=== PATIENT | female | born 1990 | race Caucasian/White ===

== ENCOUNTER 2018-09-25 18:12 | Emergency (ER) | payer OTHER, SELFPAY ==
[2018-09-25 18:15] VITALS: BP 116/79; PULSE 67; RESP 18; TEMP 36.7; O2SAT 100; BMI 24.5
--- NOTE | 2018-09-25 19:04 | DI.RAD.S_ITS ---
PROCEDURE: XR KNEE LT 3V INDICATIONS: L knee pain top of patella, hit on sharp corner TECHNIQUE: 3 views of the knee were acquired. COMPARISON: None. FINDINGS: Bones: No fractures or dislocations. No suspicious bony lesions. Soft tissues: No substantial joint effusion. No suspicious soft tissue calcifications. IMPRESSION: Left knee without acute radiographic abnormalities. If there are persistent symptoms or clinical suspicion for pathology, then repeat radiographs or advanced imaging (CT, MRI or bone scan) should be considered for further evaluation. Dictated by: Jaylon Ruffin M.D. on 09/25/2018 at 19:39 Approved by: Jaylon Ruffin M.D. on 09/25/2018 at 19:40
[2018-09-25] MEDS: ONDANSETRON 4 MG ODT SL (19:18)
[2018-09-25] MEDS: ACETAMINOPHEN 325 MG TABLET 975 MG PO (19:19)
--- NOTE | 2018-09-25 19:35 | PC.NURSE ---
Pt struck her head and knee on car door while cleaning car. Pt has small lac to forehead, bleeding controlled. Pt c/o headache, knee pain, dizziness, and nausea. Denies LOC or taking blood thinners.
--- NOTE | 2018-09-25 19:45 | ED.WOUNDLAC ---
HPI - Wound/Laceration <PRITESH Quiñonez - Last Filed: 09/25/18 23:22> General Chief Complaint: Wound/Laceration Stated Complaint: Hit head and knee on car door, thinks concussion Time Seen by Provider: 09/25/18 18:48 Source: patient and family Mode of arrival: ambulatory Limitations: no limitations History of Present Illness HPI narrative: This is a 27 year ordered female, nonsmoker, presents with her significant other with 1 cm laceration on her forehead and left knee pain. She had hit her head and left knee on sharp points of the car door this afternoon at 5:20 p.m. when she lifted her head up from vacuuming her car when her children trying to get her attention. She denies loss of consciousness although she felt a little woozy and felt like passing out at that time but now this has improved. She reports tenderness to her face, headache in frontal and temporal area and rated as 8/10, mild blurred vision however reports she is able to see. She denies neck tenderness, tingling numbness to upper extremities, history of head injury, on anticoagulants. She was ambulatory into the ED in stable gait, she reports had injured her same left knee about an year ago when her knee was hit by a baseball. She reports her pain is superior region of left patella. Related Data Home Medications Medication Instructions Recorded Confirmed No Known Home Medications 09/25/18 09/25/18 Allergies Allergy/AdvReac Type Severity Reaction Status Date / Time No Known Drug Allergies Allergy Verified 09/25/18 19:04 Review of Systems <PRITESH Quiñonez - Last Filed: 09/25/18 23:22> Review of Systems General: Denies fever, chills, fatigue, malaise, sweats. HEENT: See HPI. Denies sinus pain, ear pain, sore throat, difficulty swallowing, dizziness. Respiratory: Denies dyspnea, cough, wheezing, hemoptysis, sputum. Cardiovascular: Denies chest pain, palpitations, orthopnea, edema. Gastrointestinal: Reports nausea. Denies vomiting, abdominal pain, diarrhea, constipation, melena. : Denies dysuria, frequency, incontinence, hematuria, urinary retention. Musculoskeletal: Denies weakness, joint pain or bony pain. Skin: See HPI. Denies rash, skin lesions, or other. Neurologic: Reports headache and facial pain. Denies weakness, numbness, change in speech, confusion, seizures, incoordination. Psychiatric: No concerning psychosocial issues. 12-point review of systems is negative except for those stated above. PFSH <PRITESH Quiñonez - Last Filed: 09/25/18 23:22> Medical History (Updated 09/25/18 @ 23:01 by PRITESH Quiñonez) Delivery with history of (Chronic) Surgical History (Updated 09/25/18 @ 23:01 by PRITESH Quiñonez) H/O bilateral salpingectomy (Chronic) Social History (Updated 09/25/18 @ 23:01 by PRITESH Quiñonez) Smoking Status: Never smoker alcohol intake: current substance use type: marijuana Social History (Updated 09/25/18 @ 23:01 by PRITESH Quiñonez) Smoking Status: Never smoker alcohol intake: current substance use type: marijuana Exam <PRITESH Quiñonez - Last Filed: 09/25/18 23:22> Narrative Exam Narrative: GEN: Alert, oriented x 3, well nourished, and appears to be in discomfort. Head: Normal cephalic, atraumatic. No scalp or temporal tenderness, palpable mass or rash. EYES: Pupils are equal, round, and reactive to light and accommodation. Extraocular muscles are intact bilaterally. There is no subconjunctival hemorrhage, exudate and sclera non-icteric. ENT: Bilateral auditory canals and tympanic membranes. Hearing grossly intact. Nose without bleeding, purulent discharge. Mucous membrane moist, no mucosal lesion. Throat without erythema, tonsillar hypertrophy or exudate. Uvula in midline, airway patent. Neck: Trachea in midline. No JVD, non-tender without lymphadenopathy. No masses or thyroid megaly. Supple, non-tender and meningeal signs. CARDIAC: Normal regular rate and rhythm without murmurs, gallops, or rubs. No chest wall tenderness. No peripheral edema, cyanosis or pallor. Capillary refill is less than 2 seconds. RESPIRATORY: Lungs are cleat to auscultate bilaterally. No cough, wheezes, rales, or rhonchi. No stridor, respiratory distress, increase work of breathing, or accessary muscle used. ABD: Abdomen soft, nontender and non-distended. No guarding or rebound tenderness to palpate. Bowel sounds are normal in all 4 quadrants. There is no palpable masses or organomegaly. EXT: L superior patella tender to palpate. Full ROM of all extremities with no loss of sensation, strength, effusion or edema. SKIN: 1 cm superficial laceration to L side forehead. Warm, dry, normal color for patient. No erythema, lesions or rash. BACK: Nontender without deformity or crepitance. No flank tenderness. NEUROLOGICAL: Alert and oriented to place, time and person. Sensation and motor function intact bilaterally. No facial droops, dysphasia. PSYCHIATRIC: Good judgement and reason, without hallucinations, abnormal affect or abnormal behaviors during the examination. Initial Vital Signs Initial Vital Signs: Vital Signs Temperature 98.0 F 09/25/18 18:15 Pulse Rate 67 09/25/18 18:15 Respiratory Rate 18 09/25/18 18:15 Blood Pressure 116/79 09/25/18 18:15 Pulse Oximetry 100 09/25/18 18:15 <Ervin [address] DO - Last Filed: 09/26/18 03:43> Initial Vital Signs Initial Vital Signs: Vital Signs Temperature 98.0 F 09/25/18 18:15 Pulse Rate 67 09/25/18 18:15 Respiratory Rate 18 09/25/18 18:15 Blood Pressure 116/79 09/25/18 18:15 Pulse Oximetry 100 09/25/18 18:15 Procedures <ЮЛИЯ QuiñonezP - Last Filed: 09/25/18 23:22> Laceration Repair Laceration 1: Site: face (forehead) Side (If applicable): left Size (cm): 1 Description: clean Pre-repair: wound explored and irrigated extensively (cleaned with hibiclens and water) Skin layer closed with: dermabond Scores <PRITESH Quiñonez - Last Filed: 09/25/18 23:22> Nexus Score for C-Spine Focal Neurologic deficit present: No Midline spinal tenderness present: No Altered level of conciousness present: No Intoxication present: No Distracting Injury Present: No Nexus Criteria for C-spine: 0 Course <PRITESH Quiñonez - Last Filed: 09/25/18 23:22> Orders Ordered: ED Orders 09/25/18 19:04 XR knee LT 3V Stat Discontinued Medications Acetaminophen (Tylenol) 975 mg PO NOW ONE Stop: 09/25/18 19:05 Last Admin: 09/25/18 19:19 Dose: 975 mg Ondansetron HCl (Zofran Odt) 4 mg SL NOW ONE Stop: 09/25/18 19:05 Last Admin: 09/25/18 19:18 Dose: 4 mg Vital Signs - 8 hr 09/25/18 20:00 Pulse Rate 65 Respiratory Rate 15 Blood Pressure [Right Arm] 112/78 Pulse Oximetry 100 <Ervin Lane DO - Last Filed: 09/26/18 03:43> Orders Ordered: ED Orders 09/25/18 19:04 XR knee LT 3V Stat Discontinued Medications Acetaminophen (Tylenol) 975 mg PO NOW ONE Stop: 09/25/18 19:05 Last Admin: 09/25/18 19:19 Dose: 975 mg Ondansetron HCl (Zofran Odt) 4 mg SL NOW ONE Stop: 09/25/18 19:05 Last Admin: 09/25/18 19:18 Dose: 4 mg Vital Signs - 8 hr 09/25/18 20:00 Pulse Rate 65 Respiratory Rate 15 Blood Pressure [Right Arm] 112/78 Pulse Oximetry 100 MDM - Wound/Laceration <PRITESH Quiñonez - Last Filed: 09/25/18 23:22> Differential Diagnosis Differential diagnosis: Likely laceration and other (Closed head injury, Knee sprain, Patella fracture) Medical Records Attestation: I reviewed the patient's medical records. Imaging Data XR-L knee: Radiologist's impression: Sujey Harvey 27 F [address] [address] XRay Report Signed Patient: Sujey Harvey [facility]#: [id number] : 1990Acct:[id number] Age/Sex: 27 / FDate of Service: 09/25/18 Loc: ED Accession Number: [id number] Procedure: XR knee LT 3V Ordering Provider: Dominic Brown PROCEDURE: XR KNEE LT 3V INDICATIONS: L knee pain top of patella, hit on sharp corner TECHNIQUE: 3 views of the knee were acquired. COMPARISON: None. FINDINGS: Bones: No fractures or dislocations. No suspicious bony lesions. Soft tissues: No substantial joint effusion. No suspicious soft tissue calcifications. IMPRESSION: Left knee without acute radiographic abnormalities. If there are persistent symptoms or clinical suspicion for pathology, then repeat radiographs or advanced imaging (CT, MRI or bone scan) should be considered for further evaluation. Dictated by: Jaylon Ruffin M.D. on 09/25/2018 at 19:39 Approved by: Jaylon Ruffin M.D. on 09/25/2018 at 19:40 [facility] Narrative Medical decision making narrative: This is a 27-year-old female presents with her spouse to ED in chief complain of headache, laceration on forehead, left knee pain after she sustained injury by hitting her forehead and left knee on sharp corners of car door when she straightened her body quickly from vacuuming her car when her child needed her attention. Patient complaining of frontal and lateral head and facial pain. Per [place] CT head/Trauma rule score is 0 along Nexus score for C spine and this was shared with the patient and her spouse which they both agree with deferring the CT tests. The superficial laceration on her for had was repaired by a Dermabond after wound has been cleaned with Hibiclens and water. She was treated with ODT Zofran and Tylenol 975 mg p.o. for nausea and pain and ice packs were applied on her head and knee. she reports her pain had decreased to 6/10 before leaving the ER. we discussed in length in regards to red flag symptoms for close head injury and to monitor for increasing headache, vision change, repeated vomiting, weakness/ tingling to an extremity and seizure. I emphasized with the patient and spouseto avoid another head injury the near future and to rest her brain and limiting monitor time to recover from head injury. The wound care after the Dermabond suture repair has discussed with the patient. The patient is being discharged with her spouse and she will be monitored by her spouse next 24 hours. She is to follow up with primary care physician next 2-3 days for re-evaluation on her closed head injury, wound recheck. patient was advised to continue to take [id number] medication Tylenol and/or Motrin for pain. The patient and spouse both expressed understanding on treatment plan and no further questions expressed at this time. Discharge Plan Departure Patient Disposition: Home Clinical Impression: CHI (closed head injury) Qualifiers: Encounter type: initial encounter Qualified Code(s): S09.90XA - Unspecified injury of head, initial encounter Forehead laceration Qualifiers: Encounter type: initial encounter Qualified Code(s): S01.81XA - Laceration without foreign body of other part of head, initial encounter Contusion of knee Qualifiers: Encounter type: initial encounter Laterality: left Qualified Code(s): S80.02XA - Contusion of left knee, initial encounter Discharge Date/Time: 09/25/18 20:42 Interventions: ED Discharge Assessment Last Done: 09/25/18 20:46 Instructions: DI for Laceration Repair With Dermabond, DI for Contusion, DI for Closed Head Injury Activity Restrictions/Additional Instructions: You have been diagnosed with [closed head injury from hitting your head on sharp corner of the car door and sustained laceration on forehead and knee contusion. Your xray test does not show any acute findings such as fracture or effusion under left knee. Your laceration on forehead has been repaired with Dermabond. Please do not apply ointment/cream/lotion with oil based until the Dermabond comes off next 7-10 days. Please read head injury instructions. Please useRICE therapy such as rest, ice for 48 to 72 hours, compression as needed, elevation of the left knee for pain for next couple of days]. What to do: *Take your medications as directed. Please use [id number] Tylenol and or ibuprofen as needed for pain and inflammation and follow the instructions on the pill bottles. *Follow up with your primary care provider in 2-3 days, call for an appointment. Let them know you were seen in the ED and that we asked you to be seen in follow up. *Return to ED if you have any new, worsening, or concerning symptoms, such as [signs and symptoms for infection such as increasing redness/pain/swelling/prolonged discharge/fever or warmth. Please return to ER if you have repeated nausea vomiting, vision change, severe headache, unusual behavior, seizure, chest pain, difficulty breathing, any acute concerns]. Prescriptions: No Action No Known Home Medications RF: 0 Referrals: [facility] [Outside] <Ervin Lane DO - Last Filed: 09/26/18 03:43> Cosign ED Attending Cosignature Attestation: I was immediately available in the department for consultation. Documentation has been reviewed. I agree with assessment and plan.
[2018-09-25 20:00] VITALS: BP 112/78; PULSE 65; RESP 15; O2SAT 100
== END 2018-09-25 20:42 | disposition home or self-care (01) ==
PROVIDERS: Emergency Provider Nurse Practitioner Family
DX: S01.81XA Laceration without foreign body of other part of head, initial encounter (principal); S80.02XA Contusion of left knee, initial encounter; W22.8XXA Striking against or struck by other objects, initial encounter
CPT/HCPCS: 73562; 99283

== ENCOUNTER 2019-01-30 19:25 | Emergency (ER) | payer OTHER, SELFPAY ==
[2019-01-30 19:45] VITALS: BP 135/86; PULSE 70; RESP 18; TEMP 37.1; O2SAT 100
[2019-01-30] MEDS: ONDANSETRON 4 MG ODT PO (19:52)
--- NOTE | 2019-01-30 21:04 | ED.URI ---
HPI - URI/Sore Throat General Chief Complaint: Upper Respiratory Symptoms Stated Complaint: fever Time Seen by Provider: 01/30/19 20:50 Source: patient Mode of arrival: Ambulatory Limitations: no limitations History of Present Illness HPI Narrative: 28-year-old female here for evaluation of sore throat for the past day, body aches, no rashes, subjective fevers. Here with her kids to have fevers as well. Complaining of some nausea but no vomiting. He is able to tolerate oral intake. Has not tried anything for symptoms prior to arrival Related Data Home Medications Medication Instructions Recorded Confirmed No Known Home Medications 09/25/18 01/30/19 Allergies Allergy/AdvReac Type Severity Reaction Status Date / Time No Known Drug Allergies Allergy Verified 01/30/19 19:47 Review of Systems Constitutional Constitutional: Reports body ache(s), Reports fever(s) and Reports malaise ENT Ears, Nose, Mouth, and Throat: Reports sore throat Cardiovascular Cardiovascular: Denies chest pain and Denies dyspnea Respiratory Respiratory: Denies dyspnea Gastrointestinal Gastrointestinal: Denies change in stool character, Reports nausea and Denies vomiting Musculoskeletal Musculoskeletal: Denies myalgias and Denies arthralgias Integumentary/Breasts Skin/Breast: Denies lesions and Denies rash Neurologic Neurologic: Denies behavioral changes Psychiatric Psychiatric: Denies behavioral changes Hematologic/Lymphatic Hematologic/Lymphatic: Denies easy bleeding and Denies easy bruising Patient History Medical History Delivery with history of (Chronic) Surgical History (Updated 09/25/18 @ 23:01 by PRITESH Quiñonez) H/O bilateral salpingectomy (Chronic) Social History Smoking Status: Never smoker alcohol intake: current substance use type: marijuana Smoking Status: Never smoker alcohol intake frequency: 0-2 drinks per day Substance Use Type: does not use Exam Initial Vital Signs Initial Vital Signs: Vital Signs Temperature 98.8 F 01/30/19 19:45 Pulse Rate 70 01/30/19 19:45 Respiratory Rate 18 01/30/19 19:45 Blood Pressure 135/86 01/30/19 19:45 Pulse Oximetry 100 01/30/19 19:45 Const General: cooperative, comfortable and well developed Orientation: alert, awake and oriented x3 HENMT Head: normal to inspection and normocephalic Ears: TM's normal bilaterally Throat: posterior oropharynx normal Neck Lymphatic: No lymphadenopathy Resp Effort & Inspection: normal respiratory effort Auscultation: clear to auscultation bilaterally Cardio Rate: regular rate Rhythm: regular rhythm Skin Lesions: no lesions Rashes: no rashes Neuro General: alert and awake Cognition: normal cognition Speech: speech normal Extrem General: normal to inspection and capillary refill normal Psych Appearance: grossly normal and well kempt Course Orders Ordered: Discontinued Medications Ondansetron HCl (Zofran Odt) 4 mg PO NOW ONE Stop: 01/30/19 19:50 Last Admin: 01/30/19 19:52 Dose: 4 mg Documented by: DEBBIE Vital Signs Vital signs: Vital Signs - 8 hr 01/30/19 21:21 Temperature 98.6 F Pulse Rate 67 Respiratory Rate 16 Pulse Oximetry 98 MDM - URI/Sore Throat Lab Data Labs: Point of Care Testing Rapid Strep A Negative MDM Narrative Medical decision making narrative: Nontoxic appearing. Physical exam is unremarkable. Afebrile here in the ER. Low suspicion for flu. Low suspicion for meningitis. I do suspect influenza like illness given her symptoms. No indication for antibiotics. Will hold on further workup for now. Patient was given return precautions and follow-up instructions. She expressed understanding and agreement plan. Discharge Plan Departure Patient Disposition: Home Clinical Impression: Influenza-like illness Discharge Date/Time: 01/30/19 21:21 Instructions: DI for Fever (Symptom) -- Adult Activity Restrictions/Additional Instructions: You can take Tylenol and ibuprofen for any fevers or body aches. Contact your primary provider for follow-up. Return to the emergency department for any new or worsening symptoms Prescriptions: No Action No Known Home Medications RF: 0
[2019-01-30 21:21] VITALS: PULSE 67; RESP 16; TEMP 37; O2SAT 98
== END 2019-01-30 21:21 | disposition home or self-care (01) ==
PROVIDERS: Emergency Provider Emergency Medicine
DX: J11.1 Influenza due to unidentified influenza virus with other respiratory manifestations (principal); R50.9 Fever, unspecified
CPT/HCPCS: 87880; 99282; 99283